=== PATIENT | female | born 1995 | race Caucasian/White ===

== ENCOUNTER 2019-03-30 06:17 | Day surgery (SDC) | payer OTHER ==
[~2019-03-30] VITALS: Ht 154.9 cm; Wt 76.7 kg
[2019-03-30] VITALS (9 sets, daily range): BP systolic 112–130; BP diastolic 57–80; PULSE 78–111; RESP 16–31; Ht 154.9 cm; Wt 76.7 kg
[~2019-03-30 06:17] MED LIST: NO MEDS
[2019-03-30] MEDS ORDERED: SOD CHLORIDE 0.9% 1,000 ML IV ONE (06:30)
[2019-03-30] MEDS ORDERED: CEFAZOLIN 2 GM/50 ML (PMX) 50 ML IVPB ONE (06:30)
[2019-03-30] MEDS ORDERED: BUPIVACAINE 0.25% (MPF) 30 ML INJ ONE (06:40)
--- NOTE | 2019-03-30 08:34 | PREAC ---
Date/Time of Note Date/Time of Note DATE: 03/30/19 TIME: 08:32 Anesthesia Eval and Record Evaluation Time Pre-Procedure Interview DATE: 03/30/19 TIME: 08:32 Age 23 Sex female NPO: 8 hrs Preoperative diagnosis back mass Planned procedure exision of back mass Past Medical History Past Medical History: None Surgery & Anesthesia Issues No known issue Meds Anticoagulation: No Beta Iris within 24 hr: No Reason Beta Iris not given: Pt. not on B-Iris, Hypoglycemia Reported Medications [No Meds] No Conflict Check 07/27/10 Current Medications Sodium Chloride 1,000 ml @ 75 mls/hr [id number] ONCE IV ; Start 03/30/19 at 06:30; Stop 03/30/19 at 19:49 Meds reviewed: Yes Allergies Coded Allergies: No Known Allergies (Verified Allergy, Unknown, 12/15/11) Uncoded Allergies: NKDA (Allergy, Mild, 07/27/10) Allergies Reviewed: Yes Labs/Studies Labs Reviewed: Reviewed by anesthesiologist test: Negative Pre-procedure Exam Last vitals Vital Signs Date Temp Pulse Resp B/P (MAP) Pulse Ox O2 O2 Flow FiO2 Time Delivery Rate 03/30/19 98.3 95 16 130/65 99 07:00 (86) Airway: Adequate mouth opening, Adequate thyromental dist Mallampati: Mallampati IV Teeth: Normal Lung: Normal Heart: Normal ASA Physical Status ASA physical status: 1 Emergency: None Pre-operative Attestations Prior to commencing anesthesia and surgery, the patient was re-evaluated, there was verification of: *The patient's identity *The results of appropriate recent lab work and preoperative vital signs *The above evaluation not changing prior to induction *Anesthetic plan, risk benefits, alternative and complications discussed with patient/family; questions answered; patient/family understands, accepts and wishes to proceed. REA LERMA DO Mar 30, 2019 08:34
[2019-03-30] MEDS ORDERED: MIDAZOLAM 1 MG/ML 2 ML INJ ONE ×2 (08:39→08:40)
[2019-03-30] MEDS ORDERED: FENTAnyl 50 MCG/ML VIAL ONE ×2 (08:40→08:59)
[2019-03-30] MEDS ORDERED: KETOROLAC 30 MG INJ ONE (08:40)
[2019-03-30] MEDS ORDERED: CEFAZOLIN 1 GM INJ ONE (08:41)
[2019-03-30] MEDS ORDERED: BUPIVACAINE 0.5% (SDV) 30 ML INJ ONE (08:50)
[2019-03-30] MEDS ORDERED: LIDOCAINE 2% (MDV) 20 ML INJ ONE (08:50)
[2019-03-30] MEDS ORDERED: HYDROmorphONE 1 MG/5 ML IV SYRINGE IV PRN ×3 (09:00)
[2019-03-30] MEDS ORDERED: LIDOCAINE 1% (MDV) 20 ML INJ ONE (09:09)
[2019-03-30] MEDS ORDERED: PROPOFOL 20 ML ONE (09:09)
--- NOTE | 2019-03-30 09:26 | OPR ---
Date/Time of Note Date/Time of Note DATE: 03/30/19 TIME: 09:24 Operative Report Procedure Date: Mar 30, 2019 Preoperative Diagnosis left back mass Postoperative Diagnosis same Operation/Procedure Performed 1. excision of left back mass 8 cm mass 8 cm incision 2. localized adjacent tissue transfer with the use of skin flaps 16 sq cm defect of the back 3. therapeutic injection of subcutaneous local anesthesia Surgeon see signature line Educational Audiologist none Anesthesia Type: MAC Estimated Blood Loss: 0 - 10 ml's Transfusion none Specimen left back mass Grafts/Implants none Complications none Pt Condition Post Procedure: stable Indications This is a 23-year-old female with a left lower back mass. She required surgical excision. Risks alternatives benefits and personal were discussed with patient. Patient expressed understanding and consents to the operation. Procedure Description Patient is taken to the OR and prepped and draped in usual sterile fashion. Surgical time was performed. IV antibiotics given. Therapeutic subcutaneous local anesthesia was injected all around the area of the left lower back mass. 15 blade was used to make elliptical incision over the left lower back mass. Dissection with cautery skin onto the deep tissues and the mass was excised. Good hemostasis status. Due to tissue defect localization to his transfer with use of skin flaps was performed. Multilayer closed with interrupted 3-0 Vicryl and skin rufino. Dry dressings were applied. Janice BENAVIDEZ Mar 30, 2019 09:26
[2019-03-30] MEDS ORDERED: HYDROCODONE/APAP (5/325) TAB PO ONE (09:30)
--- NOTE | 2019-03-30 09:35 | PAC ---
Date/Time of Note Date/Time of Note DATE: 03/30/19 TIME: 09:35 Post-Anesthesia Notes Post-Anesthesia Note Last documented vital signs Vital Signs Date Temp Pulse Resp B/P (MAP) Pulse Ox O2 O2 Flow FiO2 Time Delivery Rate 03/30/19 98.9 101 16 95/60 99 0830 Activity: WNL Respiratory function: WNL Cardiovascular function: WNL Mental status: Baseline Pain reasonably controlled: Yes Hydration appropriate: Yes Nausea/Vomiting absent: Yes REA LERMA DO Mar 30, 2019 09:35
== END 2019-03-30 10:51 | disposition home or self-care (01) ==
LOC: SDS 06:17
PROVIDERS: ATTEND Surgery
DX: L72.0 Epidermal cyst (principal)
CPT/HCPCS: 14001; 84703; 88307; J0690; J1885; J2250; J3010; Z7512; Z7610